=== PATIENT | female | born 2000 | race Caucasian/White ===

== ENCOUNTER 2020-09-05 18:55 | Emergency (ER) | payer OTHER ==
[~2020-09-05] VITALS: Ht 157.5 cm; Wt 65.8 kg
[2020-09-05 19:06] VITALS: BP 126/71
[2020-09-05] MEDS ORDERED: methylPREDNISolone SS 125 MG/2 ML VIAL IVP ONE (19:15)
[2020-09-05] MEDS ORDERED: diphenhydrAMINE 50 MG/ML VIAL IVP ONE (19:15)
--- NOTE | 2020-09-05 19:30 | NUR ---
20 Y/O PT CAME IN C/O RASHES AND ALLERGIC REACTION TO HAND BAND SPLITTER, PT STATES " I USED A HAND BAND SPLITTER TODAY AND I ACCIDENTALLY TOUCHED MY NECK AND THEN I STARTED HAVNG ALLERGIC REACTION, IT WAS VERY ITCHY AND WARM TO TOUCH. I CAN ALSO FEEL IT IN MY LIPS SO, I WENT HERE." DENIES N/V/D; SKIN IS PINK/WARM/DRY; AAOX4 WITH EVEN AND STEADY GAIT; LUNGS CLEAR BL; HR EVEN AND REGULAR; PT DENIES ANY FEVER, CP, SOB, OR COUGH AT THIS TIME; VSS; PATIENT POSITIONED FOR COMFORT; HOB ELEVATED; BEDRAILS UP X2; BED DOWN. ER MD MADE AWARE OF PT STATUS. ALLERGIES: HAND BAND SPLITTER PMH: DENIES
[2020-09-05] MEDS ORDERED: EPIN1KIT31 IM (20:27)
[2020-09-05] MEDS ORDERED: PRED20TA5 PO (20:27)
[2020-09-05 20:45] VITALS: BP 126/71
--- NOTE | 2020-09-05 20:46 | NUR ---
Patient discharged with v/s stable. Written and verbal after care instructions given and explained. Patient alert, oriented and verbalized understanding of instructions. Ambulatory with steady gait. All questions addressed prior to discharge. ID band removed. Patient advised to follow up with PMD. Rx of PREDNISONE AND EPIPEN given. Patient educated on indication of medication including possible reaction and side effects. Opportunity to ask questions provided and answered.
== END 2020-09-05 20:46 | disposition home or self-care (01) ==
LOC: MED 18:55
DX: T78.40XA Allergy, unspecified, initial encounter (principal); Z79.899 Other long term (current) drug therapy; X58.XXXA Exposure to other specified factors, initial encounter
CPT/HCPCS: 81025; 96374; 96375; 99284; J1200; J2930